=== PATIENT | male | born 2000 | race Two or more races ===

== ENCOUNTER 2022-12-03 15:43 | Emergency (ER) | payer OTHER ==
[2022-12-03] MEDS ORDERED: KETOROLAC TROMETHAMINE 30 MG/1 ML VIAL IM ONE (15:49)
[2022-12-03] MEDS ORDERED: LIDOCAINE 5% TOPICAL PATCH TP ONE (15:49)
[2022-12-03] MEDS ORDERED: ACETAMINOPHEN 325 MG TABLET (FP) PO ONE (15:49)
[2022-12-03] MEDS ORDERED: METHOCARBAMOL 500 MG TABLET PO ONE (15:49)
[2022-12-03] MEDS ORDERED: ACETAMINOPHEN 500 MG TABLET (FP) PO ONE (15:49)
[2022-12-03] MEDS ORDERED: ACETAMINOPHEN 500 MG TABLET (FP) ONE (16:17)
[2022-12-03 16:51] VITALS: BP 113/50; PULSE 75; RESP 20; TEMP 99; BMI 20.2
[2022-12-03] MEDS ORDERED: LIDOCAINE PATCH REMOVAL MC SCH (22:00)
== END 2022-12-03 17:02 | disposition home or self-care (01) ==
LOC: FER 15:43
PROC: 3E023GC Introduction of Other Therapeutic Substance into Muscle, Percutaneous Approach (ICD-10-PCS; principal; 2022-12-03)
DX: M54.50 Low back pain, unspecified (principal)
CPT/HCPCS: 99284-25